=== PATIENT | female | born 1950 | race Caucasian/White ===

== ENCOUNTER → 2016-04-12 | Outpatient (CLI) | payer MEDICARE, BC ==
[~2016-04-12] MED LIST: DESYREL 100MG100 MG PO; EPA1000 MG PO; FENTANYL 50MCG TOP; LEXAPRO20 MG PO; LORTAB 7.5/5001 TAB PO; PREMARIN .3MG0.3 MG PO; RELAFEN 50500 MG/TAB PO; SYNTHROID0.125 MG/T PO; VITAMIN D32000 I1 PO; WELLBUTRIN SR100 M1 PO
== END ==
LOC: BHSO 10:11
DX: F33.41 Major depressive disorder, recurrent, in partial remission (principal)

== ENCOUNTER → 2016-05-12 | Outpatient (CLI) | payer MEDICARE, BC | LOC: COL.RAD 11:42 | DX: G31.9 Degenerative disease of nervous system, unspecified (principal) ==

== ENCOUNTER → 2016-06-02 | Outpatient (CLI) | payer MEDICARE, BC | LOC: BHSO 10:44 | DX: F33.41 Major depressive disorder, recurrent, in partial remission (principal) ==

== ENCOUNTER → 2016-07-26 | Outpatient (CLI) | payer MEDICARE, BC | LOC: BHSO 10:33 | DX: F31.73 Bipolar disorder, in partial remission, most recent episode manic (principal) ==

== ENCOUNTER → 2016-09-05 | Outpatient (CLI) | payer MEDICARE, BC | LOC: BHSO 10:37 | DX: F41.1 Generalized anxiety disorder (principal) ==

== ENCOUNTER → 2016-10-27 | Outpatient (CLI) | payer MEDICARE, BC | LOC: BHSO 11:18 | DX: F41.1 Generalized anxiety disorder (principal) ==

== ENCOUNTER → 2016-12-06 | Outpatient (CLI) | payer MEDICARE, BC | LOC: BHSO 11:33 | DX: F31.73 Bipolar disorder, in partial remission, most recent episode manic (principal) ==

== ENCOUNTER → 2017-01-17 | Outpatient (CLI) | payer MEDICARE, BC | LOC: BHSO 10:10 | DX: F41.1 Generalized anxiety disorder (principal) ==

== ENCOUNTER → 2017-03-13 | Outpatient (CLI) | payer MEDICARE, BC | LOC: MC.RAD 10:00 | DX: Z12.31 Encounter for screening mammogram for malignant neoplasm of breast (principal) ==

== ENCOUNTER → 2017-03-14 | Outpatient (CLI) | payer MEDICARE, BC | LOC: BHSO 09:50 | DX: F41.1 Generalized anxiety disorder (principal) | CPT/HCPCS: G0463 ==

== ENCOUNTER → 2017-04-14 | Outpatient (CLI) | payer MEDICARE, BC | LOC: BHSO 14:13 | DX: F31.81 Bipolar II disorder (principal) | CPT/HCPCS: G0463 ==

== ENCOUNTER → 2017-06-07 | Outpatient (CLI) | payer MEDICARE, BC | LOC: BHSO 11:24 | DX: F31.81 Bipolar II disorder (principal) | CPT/HCPCS: G0463 ==

== ENCOUNTER → 2017-08-07 | Outpatient (CLI) | payer MEDICARE, BC | LOC: BHSO 10:36 | DX: F31.81 Bipolar II disorder (principal) | CPT/HCPCS: G0463 ==

== ENCOUNTER → 2017-11-02 | Outpatient (CLI) | payer MEDICARE, BC | LOC: BHSO 11:11 | DX: F31.81 Bipolar II disorder (principal) | CPT/HCPCS: G0463 ==

== ENCOUNTER → 2018-02-12 | Outpatient (CLI) | payer MEDICARE, BC | LOC: BHSO 11:37 | DX: F31.81 Bipolar II disorder (principal) | CPT/HCPCS: G0463 ==

== ENCOUNTER → 2018-03-14 | Outpatient (CLI) | payer MEDICARE, BC | LOC: MC.RAD 09:52 | DX: Z12.31 Encounter for screening mammogram for malignant neoplasm of breast (principal) ==

== ENCOUNTER → 2018-03-28 | Outpatient (CLI) | payer MEDICARE, BC | LOC: BHSO 11:33 | DX: F31.81 Bipolar II disorder (principal) | CPT/HCPCS: G0463 ==

== ENCOUNTER → 2018-06-13 | Outpatient (CLI) | payer MEDICARE, BC | LOC: BHSO 11:08 | DX: F31.81 Bipolar II disorder (principal) | CPT/HCPCS: G0463 ==

== ENCOUNTER → 2018-11-29 | Outpatient (CLI) | payer MEDICARE, BC | LOC: BHSO 11:15 | DX: F31.81 Bipolar II disorder (principal) | CPT/HCPCS: G0463 ==

== ENCOUNTER → 2019-01-03 | Outpatient (CLI) | payer MEDICARE, BC | LOC: COL.RAD 13:18 | DX: M51.26 Other intervertebral disc displacement, lumbar region (principal); M48.061 Spinal stenosis, lumbar region without neurogenic claudication; D18.09 Hemangioma of other sites | CPT/HCPCS: A9585 ==

== ENCOUNTER → 2019-04-02 | Outpatient (CLI) | payer MEDICARE, BC | LOC: MC.RAD 09:45 | DX: Z12.31 Encounter for screening mammogram for malignant neoplasm of breast (principal) ==

== ENCOUNTER → 2019-04-12 | Outpatient (CLI) | payer MEDICARE, BC | LOC: COL.RAD 10:00 | DX: M25.552 Pain in left hip (principal) | CPT/HCPCS: J3301; Q9967 ==

== ENCOUNTER → 2019-08-16 | Outpatient (CLI) | payer MEDICARE, BC | LOC: BHSO 12:59 | DX: F31.81 Bipolar II disorder (principal) | CPT/HCPCS: G0463 ==

== ENCOUNTER → 2020-04-23 | Outpatient (CLI) | payer MEDICARE, BC ==
[~2020-04-23] MED LIST changes: +AMBIEN 5MG TABLE5 MG PO; +CALCIUM 600MG+D1 TAB PO; +CONCERTA18 MG PO; +FLEXERIL 1010 MG/TAB PO; +KLONOPIN 0.5MG0.5 MG PO; +LEXAPRO 10MG10 MG PO; +MOBIC15 MG PO; +NEURONTIN400 MG/CAP PO; +ONE-A-DAY ESSE1 EACH PO; +PERCOCET 325 MG1 TAB PO; +PRILOSEC 20MG20 MG PO; +SYNTHROID0.05 MG/TA PO
== END ==
LOC: MC.RAD 13:15
DX: Z12.31 Encounter for screening mammogram for malignant neoplasm of breast (principal)

== ENCOUNTER → 2020-09-03 | Outpatient (CLI) | payer MEDICARE, BC | LOC: COL.RAD 08:26 | DX: M25.552 Pain in left hip (principal) | CPT/HCPCS: J3301; Q9967 ==

== ENCOUNTER 2020-10-13 09:06 | Outpatient (CLI) | payer MEDICARE, BC ==
[2007-10-23 10:38] VITALS: BP 134/85
[~2020-10-13] VITALS: Ht 167.6 cm; Wt 87.3 kg
[~2020-10-13 09:06] MED LIST changes: -AMBIEN 5MG TABLE5 MG PO; -CALCIUM 600MG+D1 TAB PO; -CONCERTA18 MG PO; -FLEXERIL 1010 MG/TAB PO; -KLONOPIN 0.5MG0.5 MG PO; -LEXAPRO 10MG10 MG PO; -MOBIC15 MG PO; -NEURONTIN400 MG/CAP PO; -ONE-A-DAY ESSE1 EACH PO; -PERCOCET 325 MG1 TAB PO; -PRILOSEC 20MG20 MG PO; -SYNTHROID0.05 MG/TA PO
[2020-10-13] MEDS ORDERED: CALCIUM 600MG+D1 TAB PO (09:37)
[2020-10-13] MEDS ORDERED: KLONOPIN 0.5MG0.5 MG PO (09:37)
[2020-10-13] MEDS ORDERED: FLEXERIL 1010 MG/TAB PO (09:37)
[2020-10-13] MEDS ORDERED: SYNTHROID0.05 MG/TA PO (09:38)
[2020-10-13] MEDS ORDERED: NEURONTIN400 MG/CAP PO (09:38)
[2020-10-13] MEDS ORDERED: LEXAPRO 10MG10 MG PO (09:38)
[2020-10-13] MEDS ORDERED: MOBIC15 MG PO (09:38)
[2020-10-13] MEDS ORDERED: ONE-A-DAY ESSE1 EACH PO (09:39)
[2020-10-13] MEDS ORDERED: PRILOSEC 20MG20 MG PO (09:39)
[2020-10-13] MEDS ORDERED: CONCERTA18 MG PO (09:39)
[2020-10-13] MEDS ORDERED: PERCOCET 325 MG1 TAB PO (09:39)
[2020-10-13] MEDS ORDERED: AMBIEN 5MG TABLE5 MG PO (09:40)
[2020-10-13] MEDS ORDERED: DESYREL 100MG100 MG PO (09:40)
[2020-10-13 09:47] VITALS: BP 119/76; PULSE 72; TEMP 97.4
[2020-10-13 10:00] VITALS: BP 108/64; PULSE 70
[2020-10-13 10:15] VITALS: BP 107/76; PULSE 68
[2020-10-13 10:30] VITALS: BP 108/62; PULSE 66
[2020-10-13 10:45] VITALS: BP 98/64; PULSE 68
[2020-10-13 11:00] VITALS: BP 110/77; PULSE 66; TEMP 97.6
--- NOTE | 2020-10-13 11:15 | NUR ---
Pt tolerated infusion without issue. INT DC'd with catheter intact. Pt escorted out to ED entrance.
== END 2020-10-13 11:38 | disposition home or self-care (01) ==
LOC: EUO 09:06
DX: Z23 Encounter for immunization (principal); Z20.822 Contact with and (suspected) exposure to COVID-19
CPT/HCPCS: Q0244

== ENCOUNTER → 2021-04-26 | Outpatient (CLI) | payer MEDICARE, BC ==
[~2021-04-26] MED LIST changes: +AMBIEN 5MG TABLE5 MG PO; +CALCIUM 600MG+D1 TAB PO; +CONCERTA18 MG PO; +FLEXERIL 1010 MG/TAB PO; +KLONOPIN 0.5MG0.5 MG PO; +LEXAPRO 10MG10 MG PO; +MOBIC15 MG PO; +NEURONTIN400 MG/CAP PO; +ONE-A-DAY ESSE1 EACH PO; +PERCOCET 325 MG1 TAB PO; +PRILOSEC 20MG20 MG PO; +SYNTHROID0.05 MG/TA PO
== END ==
LOC: MC.RAD 11:36
DX: Z12.31 Encounter for screening mammogram for malignant neoplasm of breast (principal)

== ENCOUNTER → 2021-06-05 | Outpatient (CLI) | payer MEDICARE, BC | LOC: COL.RAD 08:23 | DX: M47.816 Spondylosis without myelopathy or radiculopathy, lumbar region (principal); G60.9 Hereditary and idiopathic neuropathy, unspecified; M47.817 Spondylosis without myelopathy or radiculopathy, lumbosacral region; M43.16 Spondylolisthesis, lumbar region; Z98.890 Other specified postprocedural states ==

== ENCOUNTER 2023-08-23 09:45 | Outpatient (RCR) | payer MEDICARE, BC | END 2023-08-27 | disposition home or self-care (01) | LOC: WSPT | DX: G60.9 Hereditary and idiopathic neuropathy, unspecified (principal); G25.81 Restless legs syndrome ==

== ENCOUNTER → 2023-09-27 | Outpatient (RCR) | payer MEDICARE, BC | END | disposition home or self-care (01) | LOC: WSC → WSPT 08-28 08:39 → WSC 11:15 | DX: G60.9 Hereditary and idiopathic neuropathy, unspecified (principal); G25.81 Restless legs syndrome ==